=== PATIENT | female | born 1995 ===

== ENCOUNTER 2017-06-03 02:33 | Emergency (ER) | payer BC ==
[2017-06-03 02:51] VITALS: BP 116/74; PULSE 92; RESP 16; TEMP 97.8; O2SAT 100
--- NOTE | 2017-06-03 03:11 | ED PDOC ---
HPI: Abdomen Chief Complaint (Provider): Abdominal cramps Additional History Per: Patient <Bayron Pratt - Last Filed: 06/03/17 04:19> <Ana Cristina Hager - Last Filed: 06/03/17 05:08> Time Seen by Provider: 06/03/17 03:04 Chief Complaint (Nursing): Abdominal Pain Additional Complaint(s): This is 21 y/o female with no PMH comes to the ED c/o 1 day history of severe lower abdominal cramps. Patient's LMP 05/04/16 and admits her period just started today with mild bleeding. Patient admits this kind of pain all the time in period but usually it goes away with some ibuprofen but this time it didn't help for a long time. Pain is 01/16 severity, comes and goes, crampy and radiates from lower abdomen to lower back and associated with mild nausea but denies any vomiting, dizziness, chest pain or urinary symptoms. (Bayron Pratt) Supervising Attending Note - Supervising Attending Note The Documented history was done by the: Physician Quality Cloth Tester, Attending Physician The documented physical exam was done by the: Physician Quality Cloth Tester, Attending Physician The documented procedures were done by the: Physician Quality Cloth Tester, Attending Physician - Attestation: I have personally seen and examined this patient.: Yes I have fully participated in the care of the patient.: Yes I have reviewed all pertinent clinical information: Yes <Ana Cristina Hager - Last Filed: 06/03/17 05:08> Past Medical History Reviewed: Vital Signs - Medical History PMH: No Chronic Diseases - Surgical History Surgical History: No Surg Hx - Family History Family History: States: No Known Family Hx - Living Arrangements Living Arrangements: With Family - Social History Current smoker - smoking cessation education provided: No Ex-Smoker (has not smoked in the last 12 months): No Alcohol: None Drugs: Denies <Bayron Pratt - Last Filed: 06/03/17 04:19> <Ana Cristina Hager - Last Filed: 06/03/17 05:08> Vital Signs: Last Vital Signs Temp 97.8 F 06/03/17 02:48 Pulse 92 H 06/03/17 02:48 Resp 16 06/03/17 02:48 BP 116/74 06/03/17 02:48 Pulse Ox 100 06/03/17 04:20 - Home Medications Home Medications: Ambulatory Orders Medication Instructions Recorded Ibuprofen [Motrin] 600 mg PO TID PRN #30 tab 06/03/17 - Allergies Allergies/Adverse Reactions: Allergies Allergy/AdvReac Type Severity Reaction Status Date / Time No Known Allergies Allergy Verified 06/03/17 02:51 Review of Systems Constitutional: Negative for: Fever, Sweats Eyes: Negative for: Pain ENT: Negative for: Ear Pain Cardiovascular: Negative for: Chest Pain, Palpitations Respiratory: Negative for: Cough, Shortness of Breath Gastrointestinal: Positive for: Nausea, Abdominal Pain. Negative for: Vomiting , Diarrhea Genitourinary Female: Negative for: Dysuria, Frequency Musculoskeletal: Negative for: Neck Pain Skin: Negative for: Rash Neurological: Negative for: Weakness, Numbness <Bayron Pratt - Last Filed: 06/03/17 04:19> ROS Statement: Except As Marked, All Systems Reviewed And Found Negative <Ana Cristina Hager - Last Filed: 06/03/17 05:08> Physical Exam - Reviewed Nursing Documentation Reviewed: Yes Vital Signs Reviewed: Yes - Physical Exam Appears: Positive for: No Acute Distress Head Exam: Positive for: ATRAUMATIC Skin: Positive for: Normal Color Eye Exam: Positive for: Normal appearance ENT: Positive for: Normal ENT Inspection Neck: Positive for: Normal Cardiovascular/Chest: Positive for: Regular Rate, Rhythm, Chest Non Tender Respiratory: Positive for: Normal Breath Sounds. Negative for: Decreased Breath Sounds Gastrointestinal/Abdominal: Positive for: Normal Exam, Bowel Sounds, Soft. Negative for: Tenderness Back: Positive for: Normal Inspection Extremity: Positive for: Normal ROM. Negative for: Tenderness, Pedal Edema Neurologic/Psych: Positive for: Alert, Oriented. Negative for: Motor/Sensory Deficits <Bayron Pratt - Last Filed: 06/03/17 04:19> - ECG O2 Sat by Pulse Oximetry: 100 - Progress Re-evaluation Time: 04:00 Condition: Improved <Bayron Pratt - Last Filed: 06/03/17 04:19> <Ana Cristina Hager - Last Filed: 06/03/17 05:08> - Progress ED Course And Treament: 21 y/o female with menstrual cycle cramps - Tylenol - UA reviewed with patient Case discussed with Dr. Hager Patient agrees with discharge plan (Bayron Pratt) Medical Decision Making <Bayron Pratt - Last Filed: 06/03/17 04:19> <Ana Cristina Hager - Last Filed: 06/03/17 05:08> Medical Decision Making: Menstrual cycle cramps (Bayron Pratt) Disposition - Patient ED Disposition Is Patient to be Admitted: No - Disposition Disposition: Routine/Home Disposition Time: 04:19 <Bayron Pratt - Last Filed: 06/03/17 04:19> Doctor Will See Patient In The: Office Counseled Patient/Family Regarding: Studies Performed, Diagnosis, Need For Followup <Ana Cristina Hager - Last Filed: 06/03/17 05:08> - Clinical Impression Clinical Impression: Menstrual cycle problem, Abdominal cramps - Disposition Referrals: Elijah Campbell MD [Primary Care Provider] - Condition: GOOD Additional Instructions: Follow up with your PCP in 2-3 days. Prescriptions: Ibuprofen [Motrin] 600 mg PO TID PRN #30 tab PRN Reason: Pain, Moderate (4-7) Instructions: Menstruation (ED)
== END 2017-06-03 04:13 | disposition home or self-care (01) ==
LOC: H.ER 02:33
DX: N92.6 Irregular menstruation, unspecified (principal); R10.9 Unspecified abdominal pain

== ENCOUNTER 2017-06-13 00:12 | Emergency (ER) | payer BC ==
[2017-06-13 00:32] VITALS: BP 111/70; PULSE 92; RESP 16; TEMP 97.6; O2SAT 98
== END 2017-06-13 01:30 | disposition left against medical advice (07) ==
LOC: H.ER 00:12
DX: Z02.89 Encounter for other administrative examinations (principal)